=== PATIENT | male | born 1975 | race Two or more races ===

== ENCOUNTER 2017-10-14 14:49 | Emergency (ER) | payer SELFPAY ==
[2017-10-14] MEDS: LIDOCAINE WITH 8.4% SOD BICARB 3 ML DISP.SYRIN. INJ ×2 (16:30)
== END 2017-10-14 18:10 | disposition home or self-care (01) ==
LOC: ER 14:49
DX: S01.511A Laceration without foreign body of lip, initial encounter (principal); W26.8XXA Contact with other sharp object(s), not elsewhere classified, initial encounter; Y93.89 Activity, other specified; Y92.89 Other specified places as the place of occurrence of the external cause; Y99.8 Other external cause status
CPT/HCPCS: 12011; 99283